=== PATIENT | female | born 1985 | race Hispanic/Latino ===

== ENCOUNTER 2017-04-05 00:42 | Emergency (ER) | payer BC ==
[2017-04-05 02:07] LABS: #Basophils 0.1 thou/uL (0.0-0.2); #Eosinphils 0.5 thou/uL (0.0-0.7); #Lymphocytes 2.9 thou/uL (1.20-3.40); #Monocytes 0.7 thou/uL (0.11-0.59); %Basophils 0.9 % (0.0-1.0); %Eosinophils 6.3 % (0.0-10.0); %Lymphocytes 35.6 % (21.0-51.0); %Monocytes 8.6 % (0.0-10.0); %Neutrophils 48.7 % (42.0-75.0); Hemoglobin 13.1 g/dL (12.0-16.0); Mean Corpuscular HGB CONC 34.3 g/dL (32.0-36.0); Mean Corpuscular Hemoglobin 32.6 pg (27.0-31.0); Mean Corpuscular Volume 95.1 fl (81.0-99.0); Mean Platelet Volume 7.7 fL (7.4-10.4); Platelet Count 333 thou/uL (130-400); RBC Distribution Width 11.6 % (11.5-14.5); Red Blood Cell (RBC) Count 4.01 mill/uL (4.20-5.40); White Blood Cell (WBC) Count 8.2 thou/uL (4.8-10.8)
[2017-04-05 02:27] LABS: ALT (SGPT) 23 U/L (8-55); AST (SGOT) 18 U/L (5-34); Alkaline Phosphatase 56 U/L (40-150); Anion Gap 11 mmol/L (10-20); BUN (Urea Nitrogen) 18 mg/dL (7.0-18.7); Bilirubin, Total 0.3 mg/dL (0.2-1.2); Calc. Creatinine Clearance 0 mL/min (70-130); Calcium 9.3 mg/dL (7.8-10.44); Carbon Dioxide 26 mmol/L (22-29); Chloride 106 mmol/L (98-107); Estimated GFR-MDRD Greater than 90; Globulin 3.5 g/dL (2.4-3.5); Glucose 96 mg/dL (70-105); Potassium 3.8 mmol/L (3.5-5.1); Protein, Total 7.5 g/dL (6.0-8.3); Sodium 139 mmol/L (136-145)
[2017-04-05 02:31] LABS: CKMB 1.2 ng/mL (0-6.6); Troponin I Less than 0.010 ng/mL (< 0.028)
--- NOTE | 2017-04-05 07:37 | RAD ---
RADIOGRAPH CHEST 2 VIEWS: HISTORY: 32-year-old female with chest pain and respiratory distress. FINDINGS: There is no air space density, pulmonary edema, pleural effusion, pneumothorax, or cardiomegaly. IMPRESSION: No acute cardiopulmonary findings. jn [] POS: OFF
--- NOTE | 2017-05-08 14:21 | EKG ---
Test Reason : CP Blood Pressure : / mmHG Vent. Rate : 067 BPM Atrial Rate : 067 BPM P-R Int : 130 ms QRS Dur : 084 ms QT Int : 394 ms P-R-T Axes : 031 032 049 degrees QTc Int : 416 ms Normal sinus rhythm with sinus arrhythmia Cannot rule out Anterior infarct , age undetermined Abnormal ECG Confirmed by RENEE Monterroso, BENITO ([id number]), science editor CAITY HERNANDEZ ([id number]) on 05/08/2017 2:21:07 PM Referred By: Confirmed By:BENITO DURAN M.D.
== END 2017-04-05 03:25 | disposition home or self-care (01) ==
LOC: ERS 00:42
DX: K21.9 Gastro-esophageal reflux disease without esophagitis (principal)
CPT/HCPCS: 36415; 71046; 80053; 82553; 84484; 85025; 93005

== ENCOUNTER 2019-07-25 10:00 | Emergency (ER) | payer SELFPAY, OTHER ==
[2019-07-25 10:53] LABS: #Lymphocytes 0.5 thou/uL (1.20-3.40); #Monocytes 0.4 thou/uL (0.11-0.59); #Neutrophils 2.9 thou/uL (1.40-6.50); %Basophils 0.5 % (0.0-1.0); %Eosinophils 0.3 % (0.0-10.0); %Lymphocytes 14.2 % (21.0-51.0); %Monocytes 9.8 % (0.0-10.0); %Neutrophils 75.2 % (42.0-75.0); Hemoglobin 12.8 g/dL (12.0-16.0); Mean Corpuscular Hemoglobin 31.5 pg (27.0-31.0); Mean Corpuscular Volume 95.4 fL (78.0-98.0); Mean Platelet Volume 8.1 fL (7.4-10.4); Platelet Count 217 thou/uL (130-400); RBC Distribution Width 11.7 % (11.5-14.5); Red Blood Cell (RBC) Count 4.07 mill/uL (4.20-5.40); White Blood Cell (WBC) Count 3.8 thou/uL (4.8-10.8)
[2019-07-25 11:03] LABS: BHCG - Serum Negative (NEGATIVE); Pregs Control Background? CLEAR/WHITE (CLR/WHITE); Pregs Control Bar Appear? YES (CONTROL BAR)
--- NOTE | 2019-07-25 11:08 | RAD ---
CHEST 1 VIEW PORTABLE: DATE: 07/25/2019 HISTORY: Vaginal bleeding. Chest pain with cough. COMPARISON: 04/05/2018. FINDINGS: Very minimal patchy alveolar ground-glass opacity changes in the lower lung zones bilaterally raising concern for atypical pneumonia including viral pneumonias. No cardiomegaly. No pleural effusion. IMPRESSION: Subtle patchy alveolar ground-glass opacity changes in right and left lower lobes, with concern for a typical pneumonia, including viral pneumonias. POS: RRE
[2019-07-25 11:28] LABS: ALT (SGPT) 18 U/L (8-55); AST (SGOT) 18 U/L (5-34); Albumin 3.6 g/dL (3.5-5.0); Alkaline Phosphatase 45 U/L (40-110); Anion Gap 11 mmol/L (10-20); BUN (Urea Nitrogen) 11 mg/dL (7.0-18.7); Bilirubin, Total 0.3 mg/dL (0.2-1.2); CK (CPK) 45 U/L (29-168); Calc. Creatinine Clearance 0 mL/min (70-130); Calcium 8.1 mg/dL (7.8-10.44); Carbon Dioxide 24 mmol/L (22-29); Chloride 109 mmol/L (98-107); Estimated GFR-MDRD Greater than 90; Globulin 3.6 g/dL (2.4-3.5); Glucose 104 mg/dL (70-105); Lipase 18 U/L (8-78); Potassium 3.4 mmol/L (3.5-5.1); Protein, Total 7.2 g/dL (6.0-8.3); Sodium 141 mmol/L (136-145)
[2019-07-25 22:23] LABS: SARS-CoV-2 MS2 Positive; SARS-CoV-2 N Gene Positive; SARS-CoV-2 S Gene Positive; SARS-CoV-2 orf1ab Positive
--- NOTE | 2019-07-29 12:55 | EKG ---
Test Reason : Blood Pressure : / mmHG Vent. Rate : 087 BPM Atrial Rate : 087 BPM P-R Int : 130 ms QRS Dur : 080 ms QT Int : 362 ms P-R-T Axes : 041 028 037 degrees QTc Int : 435 ms Normal sinus rhythm Possible Left atrial enlargement Low voltage QRS Borderline ECG Confirmed by HANS SHAIKH ([id number]), film and video editor JENNIFER MCKINNON ([id number]) on 07/29/2019 12:55:28 PM Referred By: ESTELITA Confirmed By:HANS Moreno
== END 2019-07-25 12:27 | disposition home or self-care (01) ==
LOC: ERS 10:00
DX: U07.1 COVID-19 (principal); N93.9 Abnormal uterine and vaginal bleeding, unspecified; J12.89 Other viral pneumonia
CPT/HCPCS: 71045; 80053; 82550; 83690; 84484; 84703; 85025; 86850; 86900; 86901; 87635; 93005; U0003

== ENCOUNTER 2019-07-26 12:03 | Emergency (ER) | payer SELFPAY, OTHER | END 2019-07-26 13:53 | disposition short-term general hospital (02) | LOC: ERS 12:03 | DX: U07.1 COVID-19 (principal); R50.9 Fever, unspecified; R06.02 Shortness of breath | CPT/HCPCS: 93005 ==